=== PATIENT | female | born 1955 ===

== ENCOUNTER 2017-09-01 08:57 | Inpatient (IN) | payer MEDICARE, BC ==
--- NOTE | 2017-09-01 10:12 | ED PDOC ---
HPI: Back Time Seen by Provider: 09/01/17 09:18 Chief Complaint (Nursing): Back Pain Chief Complaint (Provider): Lower back pain History Per: Patient History/Exam Limitations: no limitations Onset/Duration Of Symptoms: Days (x30) Current Symptoms Are (Timing): Still Present Previous Symptoms: Back Pain, Chronic Pain Additional Complaint(s): Terra Fritz is a 62 year old female with a past medical history of chronic back pain and fibromyalgia, who presents to the ED with complains of intolerable back pain, onset one month ago. Patient reports she visited her spine surgeon, Dr. Fitch who instructed her to visit the ED. She states she takes Flexeril for the back pain along with other NSAIDs. Patient reports that the pain is similar to the past, and as before, pain radiates to her legs. She denies any new numbness, weakness, or urinary symptoms. She also denies fever, chills, chest pain, and shortness of breath. Patient also states she has not had any recent spinal injections. patient offers no other medical complaints at this time. PMD: Tony Rowe Past Medical History Reviewed: Historical Data, Nursing Documentation, Vital Signs Vital Signs: Last Vital Signs Temp 98 F 09/01/17 09:11 Pulse 101 H 09/01/17 09:11 Resp 18 09/01/17 09:11 BP 133/64 09/01/17 09:11 Pulse Ox 96 09/01/17 09:11 - Medical History PMH: Fibromyalgia, Chronic Pain (back) - Surgical History Surgical History: Back Surgery - Family History Family History: States: Unknown Family Hx - Home Medications Home Medications: Ambulatory Orders Medication Instructions Recorded Cyclobenzaprine [Flexeril] 10 mg PO HS 09/01/17 - Allergies Allergies/Adverse Reactions: Allergies Allergy/AdvReac Type Severity Reaction Status Date / Time No Known Allergies Allergy Verified 09/01/17 09:11 Review of Systems ROS Statement: Except As Marked, All Systems Reviewed And Found Negative Constitutional: Negative for: Fever, Chills Cardiovascular: Negative for: Chest Pain Respiratory: Negative for: Shortness of Breath Musculoskeletal: Positive for: Back Pain (lower back) Neurological: Negative for: Weakness, Numbness Physical Exam - Reviewed Nursing Documentation Reviewed: Yes Vital Signs Reviewed: Yes - Physical Exam Appears: Positive for: Non-toxic, No Acute Distress Head Exam: Positive for: ATRAUMATIC, NORMAL INSPECTION, NORMOCEPHALIC Skin: Positive for: Normal Color, Warm, Dry Eye Exam: Positive for: EOMI, Normal appearance, PERRL Neck: Positive for: Normal, Painless ROM, Supple Cardiovascular/Chest: Positive for: Regular Rate, Rhythm. Negative for: Murmur Respiratory: Positive for: Normal Breath Sounds. Negative for: Respiratory Distress Gastrointestinal/Abdominal: Positive for: Normal Exam, Soft. Negative for: Tenderness Back: Positive for: Normal Inspection, Other (diffuse lower back tenderness). Negative for: L CVA Tenderness, R CVA Tenderness, Vertebral Tenderness Extremity: Positive for: Normal ROM. Negative for: Pedal Edema, Deformity, Swelling Neurologic/Psych: Positive for: Alert, Oriented - Laboratory Results Result Diagrams: 09/01/17 10:30 09/01/17 10:30 - ECG O2 Sat by Pulse Oximetry: 96 (RA) Pulse Ox Interpretation: Normal Medical Decision Making Medical Decision Making: Time: 9:55 Initial Impression: Acute and Chronic back pain Differentials: Herniated disc, Lumbar spondylitis Plan: --Blood Type and Screen --CT Lumbar Spine --BMP --CBC --ESR --Coag --Blood Culture 10:[address] Fitch regarding back pain. Discussed case with Dr. Rowe, plan to admit for intractable back pain. CT Lumbar Spine: FINDINGS: VERTEBRAE: A subtle dextroscoliotic spinal deformity is appreciated. Normal marko- posterior curvature is appreciated in this patient who is status post L4-5 posterior spinal fusion via transpedicular screws and interconnecting rods. No fracture or spondylolisthesis identified. No destructive bony lesions evident. Advanced degenerative disease appreciate L5-S1 where vacuum disc changes car combined with loss of disc height. Mildly increased endplate sclerosis identified at this level as well. The vertebral bodies are normal in height throughout. The visualized prevertebral paraspinal soft tissues appear diffusely unremarkable. DISCS/SPINAL CANAL/NEURAL FORAMINA: No severe spinal stenosis appreciated with posterior spinal fusion hardware generating artifacts obscuring the evaluation at the and L4-5 disc interspaces. Minimal disc bulging is appreciate L3-4 combined with facet joint degenerative changes to encroach the lateral recesses symmetrically. Neural foramina appear widely patent throughout, bilaterally. PARASPINAL SOFT TISSUES: Unremarkable. OTHER FINDINGS: None. IMPRESSION: Prior posterior spinal fusion L4-5. No severe bony central canal stenosis throughout the exam with neural foramina widely patent throughout as well. Lateral recesses at L3-4 encroached by minimal disc bulging combined with facet joint degenerative arthropathy. Generally, the central canal appears adequately patent here though obscured partially by artifact from posterior spinal fusion hardware with similar artifacts obscuring L4-5 but even more so. Subtle dextroscoliotic spinal deformity. Scribe Attestation: Documented by Veronica Guerra, acting as a scribe for Jaison Currie MD Provider Scribe Attestation: All medical record entries made by the Scribe were at my direction and personally dictated by me. I have reviewed the chart and agree that the record accurately reflects my personal performance of the history, physical exam, medical decision making, and the department course for this patient. I have also personally directed, reviewed, and agree with the discharge instructions and disposition. Disposition - Clinical Impression Clinical Impression: Back pain - Patient ED Disposition Is Patient to be Admitted: Yes Discussed With DrFidencio: Tony Rowe Doctor Will See Patient In The: Hospital Counseled Patient/Family Regarding: Studies Performed, Diagnosis - Disposition Disposition Time: 10:04 Condition: FAIR - Pt Status Changed To: Hospital Disposition Of: Inpatient - Admit Certification Admit to Inpatient:: After my assessment, the patient will require hospitalization for at least two midnights. This is because of the severity of symptoms shown, intensity of services needed, and/or the medical risk in this patient being treated as an outpatient. - POA Present On Arrival: None
[2017-09-01 10:51] LABS: BASO % 0.5 % (0.0-2.0); EOS # 0.1 K/uL (0.0-0.7); EOS % 1.4 % (0.0-4.0); HEMOGLOBIN 12.6 g/dL (12.0-16.0); LYMPH # 1.5 K/uL (1.0-4.3); LYMPH % 25.5 % (20.0-40.0); MEAN CELL VOLUME 86.8 fl (81.0-99.0); MEAN CORPUSCULAR HEMOGLOBIN 28.8 pg (27.0-31.0); MEAN CORPUSCULAR HGB CONC 33.1 g/dL (33.0-37.0); MEAN PLATELET VOLUME 10.5 fl (7.2-11.7); MONO # 0.4 K/uL (0.0-0.8); MONO % 7.7 % (0.0-10.0); NEUT # 3.7 K/uL (1.8-7.0); NEUT % 64.9 % (50.0-75.0); NRBC % 0.2 % (0.0-0.0); RBC 4.38 Mil/uL (3.80-5.20); WHITE BLOOD COUNT 5.7 K/uL (4.8-10.8)
[2017-09-01 11:00] LABS: CALCIUM 9.5 mg/dL (8.4-10.2); GFR AFRICAN-AMERICAN > 60; GFR NON-AFRICAN AMERICAN > 60
[2017-09-01 11:04] LABS: PARTIAL THROMBOPLASTIN TIME 34.3 Seconds (25.6-37.1); PROTHROMBIN TIME 11.4 Seconds (9.8-13.1)
--- NOTE | 2017-09-01 11:05 | CP.PCM.HP ---
History of Present Illness - History of Present Illness History of Present Illness: 62 year old female with PMhx of chronic back pain requiring multiple surgeries to cervical and lumbar spine in the past and fibromyalgia, who presents to the ED with complains of intolerable back pain. Patient states pain worsened after a fall she had on Mar 2017 while going down stairs, twisted her ankle and fell on her back. Patient reports she visited her spine surgeon, Dr. Conte who instructed her to visit the ED. She states she takes Flexeril for the back pain along with other NSAIDs. Patient reports that the pain is similar to the past, and as before, pain radiates to her legs. Right now pain is radiating only to L/ leg and has numbness to L/foot specifically 3,4 and 5 toes. She denies any new weakness. Denies changes in urination or stools. Patient offers no other medical complaints at this time. Present on Admission - Present on Admission Any Indicators Present on Admission: No Review of Systems - Review of Systems All systems: reviewed and no additional remarkable complaints except Review of Systems: As per HPI Past Patient History - Past Social History Smoking Status: Never Smoked Alcohol: Social - CARDIAC Hx Cardiac Disorders: No - PULMONARY Hx Respiratory Disorders: No - NEUROLOGICAL Hx Neurological Disorder: No - HEENT Hx HEENT Problems: Yes Other/Comment: Vocal cords nodules, paralysis - RENAL Hx Chronic Kidney Disease: No - ENDOCRINE/METABOLIC Hx Endocrine Disorders: No - HEMATOLOGICAL/ONCOLOGICAL Hx Blood Disorders: No - INTEGUMENTARY Hx Dermatological Problems: No - MUSCULOSKELETAL/RHEUMATOLOGICAL Hx Musculoskeletal Disorders: Yes Hx Back Pain: Yes Hx Falls: Yes (03/2017) - GASTROINTESTINAL Hx Gastrointestinal Disorders: No - GENITOURINARY/GYNECOLOGICAL Hx Genitourinary Disorders: No - PSYCHIATRIC Hx Substance Use: No - SURGICAL HISTORY Hx Surgeries: Yes Other/Comment: Cervical and lumbar spine surgeries. R/hand Sx. Vocal cords Sx - ANESTHESIA Hx Anesthesia: Yes Hx Anesthesia Reactions: No Meds Allergies/Adverse Reactions: Allergies Allergy/AdvReac Type Severity Reaction Status Date / Time No Known Allergies Allergy Verified 09/01/17 09:11 Physical Exam - Constitutional Appears: Non-toxic, In Acute Distress (mild, pain) - Eye Exam Eye Exam: EOMI, PERRL - ENT Exam ENT Exam: Mucous Membranes Moist - Respiratory Exam Respiratory Exam: Clear to Auscultation Bilateral, NORMAL BREATHING PATTERN. absent: Decreased Breath Sounds, Rales, Respiratory Distress - Cardiovascular Exam Cardiovascular Exam: REGULAR RHYTHM, +S1, +S2. absent: Gallop - GI/Abdominal Exam GI & Abdominal Exam: Normal Bowel Sounds, Soft. absent: Rebound, Tenderness - Extremities Exam Extremities exam: Positive for: normal capillary refill, pedal pulses present. Negative for: calf tenderness - Back Exam Back exam: paraspinal tenderness, vertebral tenderness - Neurological Exam Neurological exam: Alert, Oriented x3 - Psychiatric Exam Psychiatric exam: Normal Affect, Normal Mood - Skin Skin Exam: Normal Color, Warm Results - Vital Signs Recent Vital Signs: Last Vital Signs Temp 98 F 09/01/17 09:11 Pulse 101 H 09/01/17 09:11 Resp 18 09/01/17 09:11 BP 133/64 09/01/17 09:11 Pulse Ox 96 09/01/17 10:39 - Labs Result Diagrams: 09/01/17 10:30 09/01/17 10:30 Labs: Laboratory Results - last 24 hr 09/01/17 09/01/17 09/01/17 10:30 10:30 10:30 WBC 5.7 RBC 4.38 Hgb 12.6 Hct 38.0 MCV 86.8 MCH 28.8 MCHC 33.1 RDW 15.0 H Plt Count 291 MPV 10.5 Neut % (Auto) 64.9 Lymph % (Auto) 25.5 Cole % (Auto) 7.7 Eos % (Auto) 1.4 Baso % (Auto) 0.5 Neut # (Auto) 3.7 Lymph # (Auto) 1.5 Cole # (Auto) 0.4 Eos # (Auto) 0.1 Baso # (Auto) 0.0 PT 11.4 INR 1.0 APTT 34.3 Sodium 144 Chloride 103 Carbon Dioxide 27 Creatinine 0.6 L Est GFR ( Amer) > 60 Est GFR (Non-Af Amer) > 60 Random Glucose 97 Calcium 9.5 BBK History Checked 09/01/17 10:30 WBC RBC Hgb Hct MCV MCH MCHC RDW Plt Count MPV Neut % (Auto) Lymph % (Auto) Cole % (Auto) Eos % (Auto) Baso % (Auto) Neut # (Auto) Lymph # (Auto) Cole # (Auto) Eos # (Auto) Baso # (Auto) PT INR APTT Sodium Chloride Carbon Dioxide Creatinine Est GFR ( Amer) Est GFR (Non-Af Amer) Random Glucose Calcium BBK History Checked No verified bt Assessment & Plan - Assessment and Plan (Free Text) Assessment: 62 y/o F admitted for intractable chronic back pain with hx of multiple spine surgeries Intractable lower back pain Hx of multiple spinal surgeries Seen as outpatient by Dr conte(Neuro Sx) Preop labs ordered CT lumbar spine ordered as per Neurosx recs Stable and cleared for lumbar spine Sx if needed tomorrow
[2017-09-01 11:09] LABS: BLOOD UREA NITROGEN 17 mg/dl (7-17)
--- NOTE | 2017-09-01 11:28 | CT ---
PROCEDURE: CT Lumbar Spine without contrast HISTORY: lower back pain COMPARISON: None. TECHNIQUE: Axial computed tomography images were obtained of the lumbar spine without the use of intravenous contrast. Coronal and sagittal reformatted images were created and reviewed. Radiation dose: Total exam DLP = 969.31 mGy-cm. This CT exam was performed using one or more of the following dose reduction techniques: Automated exposure control, adjustment of the mA and/or kV according to patient size, and/or use of iterative reconstruction technique. FINDINGS: VERTEBRAE: A subtle dextroscoliotic spinal deformity is appreciated. Normal marko-posterior curvature is appreciated in this patient who is status post L4-5 posterior spinal fusion via transpedicular screws and interconnecting rods. No fracture or spondylolisthesis identified. No destructive bony lesions evident. Advanced degenerative disease appreciate L5-S1 where vacuum disc changes car combined with loss of disc height. Mildly increased endplate sclerosis identified at this level as well. The vertebral bodies are normal in height throughout. The visualized prevertebral paraspinal soft tissues appear diffusely unremarkable. DISCS/SPINAL CANAL/NEURAL FORAMINA: No severe spinal stenosis appreciated with posterior spinal fusion hardware generating artifacts obscuring the evaluation at the and L4-5 disc interspaces. Minimal disc bulging is appreciate L3-4 combined with facet joint degenerative changes to encroach the lateral recesses symmetrically. Neural foramina appear widely patent throughout, bilaterally. PARASPINAL SOFT TISSUES: Unremarkable. OTHER FINDINGS: None. IMPRESSION: Prior posterior spinal fusion L4-5. No severe bony central canal stenosis throughout the exam with neural foramina widely patent throughout as well. Lateral recesses at L3-4 encroached by minimal disc bulging combined with facet joint degenerative arthropathy. Generally, the central canal appears adequately patent here though obscured partially by artifact from posterior spinal fusion hardware with similar artifacts obscuring L4-5 but even more so. Subtle dextroscoliotic spinal deformity.
--- NOTE | 2017-09-01 14:24 | CARD ---
APPROVED REPORT EKG Measurement Heart [id number] <Conclusion> Normal sinus rhythm Normal ECG
[2017-09-02] MEDS ORDERED: Rocuronium 10 mg/ml (5 ml) ONE (07:04)
[2017-09-02] MEDS ORDERED: Succinylcholine 200 mg/10 ml Inj IV ONE (07:04)
[2017-09-02] MEDS ORDERED: Sevoflurane - Inhalation Anesthetic Liq (250 ml) ONE (07:05)
[2017-09-02] MEDS ORDERED: Midazolam 2 MG/2 ML VIAL ONE (07:07)
[2017-09-02] MEDS ORDERED: Propofol 10 mg/ml Inj (20 ML) ONE (07:07)
[2017-09-02] MEDS ORDERED: Lidocaine 1% w Epi 1:100,000 Inj ONE (07:13)
[2017-09-02] MEDS ORDERED: Thrombin Topical 5,000 Int Units Spray Kit ONE (07:14)
[2017-09-02] MEDS ORDERED: Absorbable Gelatin Sponge Size 100 ONE (07:14)
[2017-09-02] MEDS ORDERED: Bupivacaine HCl 0.5% PF (30 ml) Inj ONE (07:14)
[2017-09-02] MEDS ORDERED: Bupivacaine HCl 0.25% PF (30 ml) Inj ONE (07:15)
--- NOTE | 2017-09-02 07:21 | CP.PCM.CON ---
History of Present Illness - History of Present Illness History of Present Illness: This is a 62 y/o female , PMHX of fibromyalgia, chronic neck and back pain s/p lumbar fusion L4-5 and ACDF in past who presents with progressive worsening LBP. The LBP radiates to LLE and is associated with leg weakness, paresthesias and numbness of foot. The symptoms have been going on for over a year but was exacerbated by a fall in March 2017. She states that due to the pain her ambulation and daily activities are limited and now uses a cane for ambulation assitance. She was admitted yesterday due to symptom exacerbation and intervention. Patient has failed conservative treatment . She usually takes Flexeril and NSAIDS without much relief. Denies bladder or bowel incontinence. Review of Systems - Genitourinary Genitourinary: As Per HPI - Musculoskeletal Musculoskeletal: As Per HPI - Neurological Neurological: As Per HPI Past Patient History - Past Medical History & Family History Past Medical History?: Yes - Past Social History Smoking Status: Never Smoked - CARDIAC Hx Cardiac Disorders: No - PULMONARY Hx Respiratory Disorders: No - NEUROLOGICAL Hx Neurological Disorder: No - HEENT Hx HEENT Problems: Yes - RENAL Hx Chronic Kidney Disease: No - ENDOCRINE/METABOLIC Hx Endocrine Disorders: No - HEMATOLOGICAL/ONCOLOGICAL Hx Blood Disorders: No - INTEGUMENTARY Hx Dermatological Problems: No - MUSCULOSKELETAL/RHEUMATOLOGICAL Hx Musculoskeletal Disorders: Yes Hx Falls: No - GASTROINTESTINAL Hx Gastrointestinal Disorders: No - GENITOURINARY/GYNECOLOGICAL Hx Genitourinary Disorders: No - PSYCHIATRIC Hx Substance Use: No - SURGICAL HISTORY Hx Surgeries: Yes Other/Comment: Cervical and lumbar spine surgeries. R/hand Sx. Vocal cords Sx - ANESTHESIA Hx Anesthesia: Yes Hx Anesthesia Reactions: No Meds Allergies/Adverse Reactions: Allergies Allergy/AdvReac Type Severity Reaction Status Date / Time No Known Allergies Allergy Verified 09/01/17 09:11 - Medications Medications: Current Medications Acetaminophen (Tylenol 325mg Tab) 650 mg PO Q6 PRN PRN Reason: Pain, moderate (4-7) Cyclobenzaprine HCl (Flexeril) 10 mg PO HS ELA Last Admin: 09/01/17 21:49 Dose: 10 mg Physical Exam - Neurological Exam Additional comments: A&Ox3 pleasant, appropriate CN intact [place] LLE: IP: 4-/5 quad: 4/5, HS: 4/5 PF: 5/5 DF: 4/5 sensation ,: mild decrease to light touch distal LLE positve SLR BL L> R neg clonus Results - Vital Signs Recent Vital Signs: Last Vital Signs Temp 97.5 F L 09/02/17 00:00 Pulse 93 H 09/02/17 00:00 Resp 19 09/02/17 00:00 BP 110/70 09/02/17 00:00 Pulse Ox 97 09/02/17 00:00 - Labs Result Diagrams: 09/01/17 10:30 09/01/17 10:30 Labs: Laboratory Results - last 24 hr 09/01/17 09/01/17 09/01/17 10:30 10:30 10:30 WBC 5.7 RBC 4.38 Hgb 12.6 Hct 38.0 MCV 86.8 MCH 28.8 MCHC 33.1 RDW 15.0 H Plt Count 291 MPV 10.5 Neut % (Auto) 64.9 Lymph % (Auto) 25.5 Bertie % (Auto) 7.7 Eos % (Auto) 1.4 Baso % (Auto) 0.5 Neut # (Auto) 3.7 Lymph # (Auto) 1.5 Bertie # (Auto) 0.4 Eos # (Auto) 0.1 Baso # (Auto) 0.0 ESR 39 H PT 11.4 INR 1.0 APTT 34.3 Sodium 144 Potassium 4.9 Chloride 103 Carbon Dioxide 27 Anion Gap 19 BUN 17 Creatinine 0.6 L Est GFR ( Amer) > 60 Est GFR (Non-Af Amer) > 60 Random Glucose 97 Calcium 9.5 Blood Type Blood Type Confirm Antibody Screen BBK History Checked 09/01/17 09/01/17 09/01/17 10:30 12:00 12:32 WBC RBC Hgb Hct MCV MCH MCHC RDW Plt Count MPV Neut % (Auto) Lymph % (Auto) Bertie % (Auto) Eos % (Auto) Baso % (Auto) Neut # (Auto) Lymph # (Auto) Bertie # (Auto) Eos # (Auto) Baso # (Auto) ESR PT INR APTT Sodium Potassium Chloride Carbon Dioxide Anion Gap BUN Creatinine Est GFR ( Amer) Est GFR (Non-Af Amer) Random Glucose Calcium Blood Type Cancelled O POSITIVE Blood Type Confirm O POSITIVE Antibody Screen Cancelled Negative BBK History Checked Cancelled No verified bt - Imaging and Cardiology CT L spine: Status: Image reviewed by me, Report reviewed by me Assessment & Plan - Assessment and Plan (Free Text) Assessment: LUmbar radiculopathy lumbar HNP Plan: Patient well known to Dr. Salinas. Images reviewed and has been followed for her ailments Surgical intervention proposed : Lumbar laminectomy L3-4 Risks, benefits and alternatives explained, risks such as infection, hemorrhage , CSF leak, weakness, failure of surgery, numbness, need for further surgery explained and all questions answered. Patient wishes to proceed with surgery.
[2017-09-02] MEDS ORDERED: Lactated Ringer's 1,000 ML IV ONE (07:35)
[2017-09-02] MEDS ORDERED: Lidocaine 1% w Epi 1:100,000 Inj INJ ONE (07:55)
[2017-09-02] MEDS ORDERED: Dexamethasone 4 mg/1 ml ONE (08:11)
[2017-09-02] MEDS ORDERED: Neostigmine 1:1000 (1 mg/ml) Inj ONE (08:13)
[2017-09-02] MEDS ORDERED: Thrombin Topical 5,000 Int Units Spray Kit TOP ONE (08:16)
[2017-09-02] MEDS ORDERED: Absorbable Gelatin Sponge Size 100 TP ONE (08:16)
[2017-09-02] MEDS ORDERED: Bupivacaine HCl 0.25% PF (30 ml) Inj IJ ONE (08:45)
--- NOTE | 2017-09-02 09:01 | PCM.SURG1 ---
Surgeon's Initial Post Op Note - Surgeon's Notes Surgeon: Toney Salinas MD Motion Picture Set Up Worker: Richard GOLDMAN Type of Anesthesia: General Endo Anesthesia Administered By: Cody Whipple MD Pre-Operative Diagnosis: Lumbar HNP, stenosis Operative Findings: ligamentum flavum and facet hypertrophy L3-4 Post-Operative Diagnosis: as above Operation Performed: Lumbar laminectomy L3-4 ,. Non instrumented allograft fusion L3-4 Specimen/Specimens Removed: none Estimated Blood Loss: EBL {In ML}: 20 Blood Products Given: N/A Drains Used: No Drains Post-Op Condition: Good Date of Surgery/Procedure: 09/02/17 Time of Surgery/Procedure: 09:00
[2017-09-02] MEDS ORDERED: oxyCODONE 5 mg Immediate Release Tab PO PRN (09:04)
[2017-09-02] MEDS: HYDROmorphone 0.5 mg/0.5 ml ISec IVP PRN ×3 (09:12→10:00)
--- NOTE | 2017-09-02 10:00 | RAD ---
HISTORY: pre-op COMPARISON: No prior. FINDINGS: LUNGS: No active pulmonary disease. PLEURA: No significant pleural effusion identified, no pneumothorax apparent. CARDIOVASCULAR: Normal. OSSEOUS STRUCTURES: No significant abnormalities. VISUALIZED UPPER ABDOMEN: Normal. OTHER FINDINGS: None. IMPRESSION: No active disease.
--- NOTE | 2017-09-02 10:21 | RAD ---
PROCEDURE: Intraoperative Fluoroscopy. HISTORY: LUMBAR LAMINECTOMY FINDINGS: Fluoroscopic assistance was provided for apparent lumbar laminectomy. Please refer to the operative report from Dr. Salinas. 4.6 seconds of fluoroscopy time was utilized.
--- NOTE | 2017-09-02 10:50 | OP ---
PROCEDURE DATE: 09/02/2017 PREOPERATIVE DIAGNOSIS: Lumbar spondylosis, status post lumbar lami and fusion. POSTOPERATIVE DIAGNOSIS: L3-4 spondylosis, status post lami and fusion at L4 to L5. PROCEDURE: L3-4 lumbar laminectomy and L3 to L5 posterolateral fusion. SURGEON: Toney Salinas MD INDUCTION COORDINATION ENGINEER: Richard Blanton. Richard Blanton is the physician library assistant who stayed throughout the case from beginning to the end, helped me perform the surgery. Fluoroscopy has been used for the procedure. DESCRIPTION OF PROCEDURE: The patient was brought to the operating room, anesthetized with general endotracheal anesthesia, placed in a prone position on a Gopi table. Care was taken to protect all the pressure points. Back of the lumbar area thoroughly prepped and draped in same sterile manner after marking for skin incision for lumbar laminectomy at L3-4. After prepping and draping the area, the skin has been incised. Bleeding skins had been controlled with bipolar salon customer experience specialist. After using a Bovie salon customer experience specialist, subcutaneous tissue, muscles have been cut, underlying attachment to the bone. The lamina of L3-4 has been exposed and the previously defected L4 has been identified and the pedicle screws at L3 and L4 had been identified with the titanium justin placed in this area. After that under microscopic magnification and illumination, after confirming levels with fluoroscopy by using a Le[place]ell rongeur, the spinous process of L3 have been removed by using high-speed drill, the lamina of L3 had been drilled to actual thickness. By using a fine Kerrison punch, thinned out the lamina, medial part of the facets and ligamentum flavum which was found to be significant buckled and thickened has been removed, decompressing this area. After that the lateral aspect of facet joint at L3, L4, and L5 has been decorticated, demineralized bone placed in the area achieving a fusion from L3 to L5 posterolaterally. After that hemostasis was best achieved. Fascia across the interspinous ligaments and spinous process with 1 Vicryl, subcutaneous tissue with 3 Vicryl. Skin has been closed with intradermal 3 Vicryl stitches. The patient tolerated the procedure, and after procedure, mobilized to the recovery room in stabilized condition. Toney Salinas MD [facility] # [id number]
--- NOTE | 2017-09-02 12:13 | CP.PCM.PN ---
Subjective - Date & Time of Evaluation Date of Evaluation: 09/02/17 Time of Evaluation: 12:05 - Subjective Subjective: Evaluated after Sx. Sleeping in bed in not acute distress. S/p Lumbar laminectomy L3-L4. Advance diet as tolerated. Anticipated DC tomorrow Objective - Vital Signs/Intake and Output Vital Signs (last 24 hours): Temp Pulse Resp BP Pulse Ox 97.5 F L 85 18 103/68 96 09/02/17 11:40 09/02/17 11:40 09/02/17 11:40 09/02/17 11:40 09/02/17 11:40 Intake and Output: 09/02/17 09/02/17 06:59 18:59 Intake Total 1050 Balance 1050 - Medications Medications: Current Medications Acetaminophen (Tylenol 325mg Tab) 650 mg PO Q6 PRN PRN Reason: Pain, moderate (4-7) Cyclobenzaprine HCl (Flexeril) 10 mg PO [facility] Last Admin: 09/01/17 21:49 Dose: 10 mg Docusate Sodium (Colace) 100 mg PO BID ELA Cefazolin Sodium 1 gm/ (Dextrose) 100 mls @ 100 mls/hr IVPB Q8 ELA PRN Reason: Protocol Stop: 09/03/17 17:01 Ondansetron HCl (Zofran Inj) 4 mg IVP Q6 PRN PRN Reason: Nausea/Vomiting Oxycodone HCl (Oxycodone Immediate Release Tab) 5 mg PO Q6 PRN PRN Reason: Pain, moderate (4-7) Oxycodone HCl (Oxycodone Immediate Release Tab) 10 mg PO Q6 PRN PRN Reason: Pain, severe (8-10) Sennosides (Senokot Tab) 17.2 mg PO HS [facility] - Labs Labs: 09/01/17 10:30 09/01/17 10:30 PT 11.4 Seconds (9.8-13.1) 09/01/17 10:30 INR 1.0 (0.9-1.2) 09/01/17 10:30 APTT 34.3 Seconds (25.6-37.1) 09/01/17 10:30 - Constitutional Appears: Non-toxic, No Acute Distress - ENT Exam ENT Exam: Mucous Membranes Moist - Respiratory Exam Respiratory Exam: NORMAL BREATHING PATTERN. absent: Respiratory Distress - Cardiovascular Exam Cardiovascular Exam: REGULAR RHYTHM - Extremities Exam Extremities Exam: Normal Inspection. absent: Pedal Edema - Neurological Exam Neurological Exam: Alert, Awake - Skin Skin Exam: Normal Color, Warm Assessment and Plan - Assessment and Plan (Free Text) Assessment: S/P lumbar laminectomy L3-L4 NO drainage in place Pain control Advance diet Poss DC tomorrow
[2017-09-02] MEDS: oxyCODONE 10 mg Immediate Release Tab PO PRN (19:50)
[2017-09-03 05:30] LABS: HEMOGLOBIN 11.6 g/dL (12.0-16.0); MEAN CELL VOLUME 88.4 fl (81.0-99.0); MEAN CORPUSCULAR HEMOGLOBIN 28.6 pg (27.0-31.0); MEAN CORPUSCULAR HGB CONC 32.4 g/dL (33.0-37.0); RBC 4.05 Mil/uL (3.80-5.20); RED CELL DISTRIBUTION WIDTH 14.6 % (11.5-14.5)
[2017-09-03 05:52] LABS: BLOOD UREA NITROGEN 16 mg/dl (7-17); CALCIUM 9.5 mg/dL (8.4-10.2); GFR AFRICAN-AMERICAN > 60; GFR NON-AFRICAN AMERICAN > 60
[2017-09-03] MEDS: oxyCODONE 10 mg Immediate Release Tab PO PRN ×2 (06:35→12:18)
[2017-09-03 07:42] VITALS: BP 99/64; PULSE 99; RESP 20; TEMP 97.4; O2SAT 97
--- NOTE | 2017-09-03 12:51 | CP.PCM.DIS ---
Provider - Provider Date of Admission: 09/01/17 10:04 Attending physician: Tony Rowe MD Consults: neurosurgery Time Spent in preparation of Discharge (in minutes): 30 Diagnosis - Discharge Diagnosis (1) Lumbar disc disease Status: Chronic Comment: S/P lumbar laminectomy L3-L4 Hospital Course - Lab Results Lab Results: Micro Results 09/01/17 12:05 Blood Blood Culture - Preliminary NO GROWTH AFTER 48 HOURS 09/01/17 10:30 Blood Blood Culture - Preliminary NO GROWTH AFTER 48 HOURS Most Recent Lab Values WBC 12.0 K/uL (4.8-10.8) H D 09/03/17 04:55 RBC 4.05 Mil/uL (3.80-5.20) 09/03/17 04:55 Hgb 11.6 g/dL (12.0-16.0) L 09/03/17 04:55 Hct 35.8 % (34.0-47.0) 09/03/17 04:55 MCV 88.4 fl (81.0-99.0) 09/03/17 04:55 MCH 28.6 pg (27.0-31.0) 09/03/17 04:55 MCHC 32.4 g/dL (33.0-37.0) L 09/03/17 04:55 RDW 14.6 % (11.5-14.5) H 09/03/17 04:55 Plt Count 245 K/uL (130-400) 09/03/17 04:55 MPV 10.5 fl (7.2-11.7) 09/01/17 10:30 Neut % (Auto) 64.9 % (50.0-75.0) 09/01/17 10:30 Lymph % (Auto) 25.5 % (20.0-40.0) 09/01/17 10:30 Weber % (Auto) 7.7 % (0.0-10.0) 09/01/17 10:30 Eos % (Auto) 1.4 % (0.0-4.0) 09/01/17 10:30 Baso % (Auto) 0.5 % (0.0-2.0) 09/01/17 10:30 Neut # (Auto) 3.7 K/uL (1.8-7.0) 09/01/17 10:30 Lymph # (Auto) 1.5 K/uL (1.0-4.3) 09/01/17 10:30 Weber # (Auto) 0.4 K/uL (0.0-0.8) 09/01/17 10:30 Eos # (Auto) 0.1 K/uL (0.0-0.7) 09/01/17 10:30 Baso # (Auto) 0.0 K/uL (0.0-0.2) 09/01/17 10:30 ESR 39 mm/hr (0-30) H 09/01/17 10:30 PT 11.4 Seconds (9.8-13.1) 09/01/17 10:30 INR 1.0 (0.9-1.2) 09/01/17 10:30 APTT 34.3 Seconds (25.6-37.1) 09/01/17 10:30 Sodium 142 mmol/l (132-148) 09/03/17 04:55 Potassium 4.6 MMOL/L (3.6-5.0) 09/03/17 04:55 Chloride 99 mmol/L (98-107) 09/03/17 04:55 Carbon Dioxide 31 mmol/L (22-30) H 09/03/17 04:55 Anion Gap 17 (10-20) 09/03/17 04:55 BUN 16 mg/dl (7-17) 09/03/17 04:55 Creatinine 0.8 mg/dl (0.7-1.2) 09/03/17 04:55 Est GFR ( Amer) > 60 09/03/17 04:55 Est GFR (Non-Af Amer) > 60 09/03/17 04:55 Random Glucose 111 mg/dL (65-105) H 09/03/17 04:55 Calcium 9.5 mg/dL (8.4-10.2) 09/03/17 04:55 Blood Type O POSITIVE 09/01/17 12:00 Blood Type Confirm O POSITIVE 09/01/17 12:32 Antibody Screen Negative 09/01/17 12:00 BBK History Checked No verified bt 09/01/17 12:00 - Hospital Course Hospital Course: 62 y/o patient with Hx of intractable pain and multiple spine Sx in the past was admitted to hosp for sx eval for lumbar disc disease with radiculopathy. Patient underwent lumbar laminectomy L3-L4 Yesterday by Dr Salinas and today she is stable, pain is controlled and minimun, tolerating PO and cleared to be DC and c/w f/u as outpatient. Discharge Exam - Head Exam Head Exam: ATRAUMATIC, NORMAL INSPECTION, NORMOCEPHALIC - Eye Exam Eye Exam: EOMI, PERRL - Respiratory Exam Respiratory Exam: Clear to PA & Lateral, NORMAL BREATHING PATTERN, UNREMARKABLE - Cardiovascular Exam Cardiovascular Exam: REGULAR RHYTHM, +S1, +S2. absent: Gallop - GI/Abdominal Exam GI & Abdominal Exam: Normal Bowel Sounds, Soft. absent: Tenderness - Extremities Exam Extremities exam: normal capillary refill - Back Exam Back exam: absent: CVA tenderness (L), CVA tenderness (R) Additional comments: Dressing intact. No drainage - Neurological Exam Neurological exam: Alert, Oriented x3, Reflexes Normal - Psychiatric Exam Psychiatric exam: Normal Affect, Normal Mood - Skin Skin Exam: Normal Color, Warm Discharge Plan - Discharge Medications Prescriptions: Acetaminophen/Oxycodone Hydr [Percocet 10/325 mg Tab] 1 tab PO Q8 #10 tab - Follow Up Plan Condition: STABLE Disposition: HOME/ ROUTINE Patient education suggested?: Yes Instructions: Laminectomy (DC), Back Precautions Additional Instructions: follow up with Dr. Salinas and your primary MD 7-10 days. Referrals: Toney Salinas MD [Staff Provider] - Tony Rowe MD [Staff Provider] -
== END 2017-09-03 14:27 | disposition home or self-care (01) | DRG 460 ==
LOC: H.ER 08:57 → H.ERHOLD 10:04 → H.MEDSURG1 12:24
PROVIDERS: ADMIT Family Medicine; ATTEND Family Medicine
PROC: 0SG10K1 Fusion of 2 or more Lumbar Vertebral Joints with Nonautologous Tissue Substitute, Posterior Approach, Posterior Column, Open Approach (ICD-10-PCS; principal; 2017-09-02 07:30)
DX: M47.26 Other spondylosis with radiculopathy, lumbar region (principal); M79.7 Fibromyalgia; R53.1 Weakness; R20.0 Anesthesia of skin